=== PATIENT | female | born 1990 ===

== ENCOUNTER 2025-03-26 11:53 | Emergency (ER) | payer OTHER ==
[~2025-03-26] VITALS: Ht 165.1 cm; Wt 93.6 kg
[2025-03-26 11:56] VITALS: BP 141/92; PULSE 71; RESP 16; TEMP 97.8; O2SAT 97
== END 2025-03-26 13:22 | disposition left against medical advice (07) ==
LOC: ER 11:53
DX: N93.9 Abnormal uterine and vaginal bleeding, unspecified (principal); Z53.21 Procedure and treatment not carried out due to patient leaving prior to being seen by health care provider